=== PATIENT | female | born 1990 | race Hispanic/Latino ===

== ENCOUNTER 2016-10-03 21:14 | Emergency (ER) | payer OTHER ==
[~2016-10-03] VITALS: Ht 162.6 cm; Wt 64.4 kg
[2016-10-03 21:44] LABS: ABSOLUTE BASOPHIL COUNT 0 /CUMM (0.0-0.2); ABSOLUTE EOSINOPHIL COUNT 0.3 /CUMM (0.0-0.7); ABSOLUTE GRANULOCYTE CT 7.5 /CUMM (1.4-6.5); ABSOLUTE LYMPH COUNT 3.3 /CUMM (1.2-3.4); ABSOLUTE MONOCYTE COUNT 0.6 /CUMM (0.10-0.60); BASOPHIL % 0.3 % (0.0-2.0); EOSINOPHIL % 2.3 % (0-5); GRANULOCYTE % 64.2 % (42.2-75.2); MEAN CORPUSCULAR HGB 29.3 PG (27.0-31.0); MEAN CORPUSCULAR HGB CONC 32.7 G/DL (33.0-37.0); MEAN CORPUSCULAR VOLUME 89.6 FL (81.0-99.0); MEAN PLATELET VOLUME 9.2 FL (7.4-10.4); PLATELET COUNT 264 /CUMM (130-400); RED BLOOD CELL CT 4.24 /CUMM (4.20-5.40); WHITE BLOOD CELL COUNT 11.6 /CUMM (4.8-10.8)
--- NOTE | 2016-10-04 00:36 | ED GI/GU/ABDOMINAL COMPLAINT ---
History of Present Illness General Chief Complaint: Low Back Pain/Injury Stated Complaint: PT HAS VERY BAD BACK PAIN Source: patient Exam Limitations: no limitations Allergies Coded Allergies: No Known Drug Allergies (NKDA 10/03/16) Reconcile Medications Ibuprofen 600 MG TABLET 1 TAB PO Q6PRN PRN pain with food Tramadol HCl (Ultram) 50 MG TABLET 1-2 TAB PO Q6PRN PRN severe pain Triage Note: PT TO ED C/O LLQ PAIN THAT GOES TO LEFT SIDE WITH +N/V FOR 6 DAYS. WENT TO WALK IN ON FRIDAY "I JUST HAD A LITTLE BLOOD IN MY URINE" DENIES FEVERS. DENIES UTI S/S. CURRENT MENSES. LAST BM WAS THIS AM AND WAS NORMAL. Triage Nurses Notes Reviewed? yes ? n Is pt currently ? No Onset: Abrupt Duration: day(s): (6), constant, continues in ED Timing: recent history Quality/Severity: moderate, sharpness Location: left flank No Modifying Factors: none HPI: 26-year-old female comes into emergency room for evaluation of left flank pain and left lower abdomen pain. Pain started 6 days ago. Pain is sharp. Continuous. Denies any fever. Denies any vomiting. Pain is gone progressively worse. Nothing seems to make the symptoms better or worse. (DAFNE SIEGEL) Vital Signs & Intake/Output Vital Signs & Intake/Output Vital Signs Date Time Temp Pulse Resp B/P B/P Pulse O2 O2 Flow FiO2 Mean Ox Delivery Rate 10/04 0215 98.6 64 18 152/91 98 Room Air 10/04 0046 97.9 61 20 167/95 99 Room Air 10/04 0028 97 Room Air 10/03 2128 97.6 62 18 95 Room Air ED Intake and Output 10/04 0000 10/03 1200 Intake Total Output Total Balance Patient 142 lb Weight Weight Reported by Patient Measurement Method Past History Travel History Traveled to [place] past 21 day No Medical History Any Pertinent Medical History? see below for history Renal: nephrolithiasis Surgical History Surgical History: non-contributory Psychosocial History What is your primary language Finnish Tobacco Use: Current Daily Use Daily Tobacco Use Amount/Type: =< 4 Cigarettes daily ETOH Use: occasional use Illicit Drug Use: denies illicit drug use Family History Hx Contributory? No (DAFNE SIEGEL) Review of Systems Review of Systems Constitutional: Reports: no symptoms. EENTM: Reports: no symptoms. Respiratory: Reports: no symptoms. Cardiovascular: Reports: no symptoms. GI: Reports: see HPI. Genitourinary: Reports: see HPI. Musculoskeletal: Reports: see HPI. Skin: Reports: no symptoms. Neurological/Psychological: Reports: no symptoms. Hematologic/Endocrine: Reports: no symptoms. Immunologic/Allergic: Reports: no symptoms. All Other Systems: Reviewed and Negative (DAFNE SIEGEL) Physical Exam Physical Exam General Appearance: well developed/nourished, alert, awake Head: atraumatic, normal appearance Eyes: Bilateral: normal appearance, EOMI. Ears, Nose, Throat, Mouth: hearing grossly normal, moist mucous membrane Neck: normal inspection, full range of motion Respiratory: normal breath sounds, no respiratory distress Cardiovascular: regular rate/rhythm Gastrointestinal: soft, tenderness (left lower quadrant) Back: normal inspection Extremities: normal range of motion Neurologic/Psych: awake, alert, normal gait, normal mood/affect Skin: intact, normal color Core Measures ACS in differential dx? No Severe Sepsis Present: No Septic Shock Present: No (DAFNE SIEGEL) Progress Differential Diagnosis: cholecystitis, diverticulitis, ectopic , intrauterine , kidney stone, ovarian cyst, ovarian torsion, pancreatitis, PID/cervicitis, SBO, threatened AB, UTI/pyelo Diagnostic Imaging: Viewed by Me: CT Scan. Discussed w/RAD: CT Scan. Initial ED EKG: none (DAFNE SIEGEL) Plan of Care: Orders Procedure Date/time Status URINE 10/03 2130 Complete URINALYSIS 10/03 2130 Complete COMPREHENSIVE METABOLIC PANEL 10/03 2130 Complete CBC WITHOUT DIFFERENTIAL 10/03 2130 Complete Laboratory Tests 10/03/162139: Urine Color YEL, Urine Clarity CLEAR, Urine pH 6.0, Ur Specific [place] 1.020, Urine Protein NEG, Urine Ketones NEG, Urine Nitrite NEG, Urine Bilirubin NEG, Urine Urobilinogen 1.0, Ur Leukocyte Esterase NEG, Ur Microscopic SEDIMENT EXAMINED, Urine RBC 1-3, Urine WBC 1-3 H, Ur Epithelial Cells FEW, Urine Bacteria FEW H, Urine Mucus FEW, Urine Hemoglobin SMALL H, Urine Glucose NEG, Urine Test NEGATIVE 10/03/162135: Anion Gap 12, Estimated GFR > 60, BUN/Creatinine Ratio 16.7, Glucose 88, Calcium 9.4, Total Bilirubin 0.5, AST 23, ALT 26, Alkaline Phosphatase 74, Total Protein 7.3, Albumin 4.1, Globulin 3.2, Albumin/Globulin Ratio 1.3, CBC w Diff NO MAN DIFF REQ, RBC 4.24, MCV 89.6, MCH 29.3, RDW 14.0, MPV 9.2, Gran % 64.2, Lymphocytes % 28.1, Monocytes % 5.1, Eosinophils % 2.3, Basophils % 0.3, Absolute Granulocytes 7.5 H, Absolute Lymphocytes 3.3, Absolute Monocytes 0.6, Absolute Eosinophils 0.3, Absolute Basophils 0, PUBS MCHC 32.7 L Radiology Impression: No hydronephrosis or nephrolithiasis. Hyperattenuation of the medullary region of both kidneys suggestive of medullary nephrocalcinosis. (JUDD HERNANDEZ,NIKOLAS) Departure Departure Disposition: HOME OR SELF CARE Condition: Stable Clinical Impression Primary Impression: Abdominal pain Additional Instructions: Follow-up with your primary care doctor. Return if any concerns worsening symptoms. Please go over all results of today's visit with your primary care doctor. Contact your primary care doctor to let them know you were here in the emergency room. There may be nonspecific findings which may not be related to your visit today here in the emergency room but may require further evaluation and chronic monitoring by your primary care doctor. If you had a laceration today the chance of foreign body always remains. You should follow-up with your primary care doctor for recheck in 3-5 days for a wound check. If you had an x-ray done there is a chance that a fracture could have been missed on initial read and you should follow-up with your primary care doctor for repeat x-rays if symptoms persist. If your blood pressure was elevated here in the emergency room please have rechecked by her primary care doctor within the next 48 hours by your primary care doctor. If you were prescribed a narcotic here in the emergency room or any type of controlled substances you're not allowed to drive while taking this medication or operate any type of heavy machinery. Narcotics can make you feel lightheaded dizziness nausea and can cause constipation. You may need to picker packer a stool softener. Thank you for choosing [facility] emergency room. Please return to the emergency room immediately if you have any other concerns worsening of symptoms. Departure Forms: Customer Survey General Discharge Information (DAFNE SIEGEL) Departure Referrals: DAINA HERNANDEZ,AMISHA Kaur Follow up with your urologist or Dr. Cardona Prescriptions: Current Visit Scripts Ibuprofen 1 TAB PO Q6PRN PRN pain #50 TAB with food Tramadol HCl (Ultram) 1-2 TAB PO Q6PRN PRN severe pain #30 TAB PA/HOUSE WRECKER Co-Sign Statement Statement: ED Attending supervision documentation- x I saw and evaluated the patient. I have also reviewed all the pertinent lab results and diagnostic results. I agree with the findings and the plan of care as documented in the PA's/HOUSE WRECKER's documentation. [] I have reviewed the ED Record and agree with the PA's/HOUSE WRECKER's documentation. [] Additions or exceptions (if any) to the PAs/HOUSE WRECKER's note and plan are summarized below: [] (JUDD HERNANDEZ,NIKOLAS)
--- NOTE | 2016-10-04 01:05 | CT SCAN REPORT ---
EXAMINATION: CT ABDOMEN AND PELVIS WITHOUT CONTRAST CLINICAL INFORMATION: Left lower quadrant pain. Left flank pain. COMPARISON: None TECHNIQUE: Multidetector volumetric imaging was performed from the superior aspect of the liver through the pubic symphysis. Sagittal and coronal reformatted images were obtained on the technologist's workstation. DLP: 273 mGy-cm FINDINGS: LUNG BASES: The visualized lung bases are unremarkable. LIVER, GALLBLADDER, AND BILIARY TREE: The liver is normal in size, shape, and attenuation. No focal hepatic lesion or biliary ductal dilatation is present. The gallbladder is unremarkable with no evidence of radiopaque gallstones, gallbladder wall thickening, or obvious pericholecystic inflammatory changes. PANCREAS: Unremarkable. SPLEEN: Unremarkable. ADRENAL GLANDS: Unremarkable. KIDNEYS AND URETERS: The kidneys are normal in size and shape. No hydronephrosis, hydroureter, or calculi seen. No perinephric stranding. There is mild hyperattenuation along the medullary regions of both kidneys, suggestive of medullary nephrocalcinosis. BLADDER: Unremarkable. GASTROINTESTINAL TRACT: The stomach and small bowel are unremarkable. No dilated loops of bowel or evidence of obstruction. No colonic wall thickening or inflammatory change. No free air or free fluid. ABDOMINAL WALL: No significant hernia is appreciated. LYMPH NODES: Normal. VASCULAR: Unremarkable. PELVIC VISCERA: The uterus and adnexa are unremarkable. OSSEOUS STRUCTURES: No acute or suspicious osseous abnormality. IMPRESSION: No hydronephrosis or nephrolithiasis. Hyperattenuation of the medullary region of both kidneys suggestive of medullary nephrocalcinosis.
[2016-10-04] MEDS ORDERED: ULTRAM50 M1 PO (02:06)
[2016-10-04] MEDS ORDERED: IBUPROFEN600 M1 PO (02:06)
[2016-10-04 02:15] VITALS: BP 152/91
== END 2016-10-04 02:18 ==
LOC: ERH 21:14
PROVIDERS: Emergency Medicine
DX: R10.32 Left lower quadrant pain (principal)
CPT/HCPCS: 74176; 81001; 81025